=== PATIENT | male | born 1945 | race Caucasian/White ===

== ENCOUNTER → 2016-09-18 | Outpatient (CLI) | payer OTHER ==
--- NOTE | 2016-09-18 14:34 | US ---
Testicular Sonography with Color and Spectral Doppler Assessment Clinical History: 71-year-old male with right-sided swelling for one day. Evaluate for epididymitis o r a hydrocele. ICD10 Diagnostic Code: N44.8. Technique: A linear 12 MHz transducer was used to sonographically evaluate each hemiscrotum. Color an d Spectral Doppler are used. Comparison Study: None. Findings: Right Hemiscrotum: The testis is normal in size, shape, and position, and is homogeneous in echotextu re, measuring 4.0 x 2.9 x 2.2 cm. Intratesticular vascular flow is documented. There is a small right hydrocele. There is no varicocele. There is enlargement and color hyperemia with Doppler evaluation involving the epididymis, particularly at the level of the epididymal tail, consistent with an epidid ymitis. There is no varicocele. Left Hemiscrotum: The testis is normal in size, shape, and position, and homogeneous in echotexture, measuring 4.1 x 2.8 x 2.1 cm. Intratesticular vascular flow is documented. There is a small hydrocele . There is no varicocele. The epididymis appears normal. Impression: 1. Normal sonographic appearance of each testis. 2. Right-sided epididymitis. 3. Small bilateral hydroceles. Results were called to the voicemail of Myrtle Magana, Nurse Practitioner, as requested. A test result has been communicated to a licensed care provider and documented in [employer], 2:11:19 PM , 09/18/2016, [employer] Message ID [id number].
== END ==
LOC: FIMAGING 13:23
PROVIDERS: ATTEND Nurse Practitioner Adult Health
DX: N45.1 Epididymitis (principal); N43.3 Hydrocele, unspecified